=== PATIENT | male | born 1950 | race Caucasian/White ===

== ENCOUNTER → 2016-07-06 | Outpatient (CLI) | payer OTHER, MEDICARE ==
[~2016-07-06] MED LIST: IOPAMIDOL (ISOVUE-300) 100 ML BTL IV ONE
[2016-07-06 10:46] LABS: CREATININE 1.1 mg/dL (0.7-1.3); GLOMERULAR FILTRATION RATE > 60
== END ==
LOC: FIMAGING 10:05
PROVIDERS: ATTEND Internal Medicine
DX: I10 Essential (primary) hypertension (principal); R31.9 Hematuria, unspecified; N28.1 Cyst of kidney, acquired; K76.89 Other specified diseases of liver
CPT/HCPCS: 74178; 75571; Q9967